=== PATIENT | female | born 1990 | race Asian ===

== ENCOUNTER 2021-10-08 08:54 | Outpatient (CLI) | payer OTHER ==
--- NOTE | 2021-10-08 10:37 | XRAY Report ---
PROCEDURE: Ribs w/PA Chest RT INDICATIONS: RIB PAIN TECHNIQUE: 3 views of the right ribs were acquired, along with a single view chest. COMPARISON: None FINDINGS: Surgical changes and devices: None. Bones and chest wall: Mildly displaced fracture of the right lateral 10th rib. No suspicious bony les ions. Overlying soft tissues appear unremarkable. Lungs and pleura: No pleural effusions or pneumothorax. Lungs appear clear. Mediastinum: Mediastinal contours appear normal. Heart size is normal. IMPRESSION: 1. Right 10th rib fracture. Reviewed by: Ramone Bennett MD on 10/08/2021 10:36 AM PDT Approved by: Ramone Bennett MD on 10/08/2021 10:36 AM PDT Station ID: [id number]
== END 2021-10-08 08:55 | disposition home or self-care (01) ==
LOC: DI.N 08:54 → EDBD 08:54 → DI.N 08:55
PROVIDERS: ATTEND Physician Assistant
DX: S22.31XA Fracture of one rib, right side, initial encounter for closed fracture (principal)

== ENCOUNTER 2023-11-20 08:33 | Emergency (ER) | payer OTHER ==
[2023-11-20 09:28] LABS: BASOPHILS % (AUTO) 0.4 %; EOSINOPHILS # (AUTO) 0.1 10^3/uL (0.0-0.7); EOSINOPHILS % (AUTO) 0.7 %; HCT - HEMATOCRIT 37.4 % (37.0-47.0); HGB - HEMOGLOBIN 12.2 g/dL (12.0-16.0); LYMPHOCYTES % (AUTO) 11.6 %; MEAN CORPUSCULAR HEMOGLOBIN 31.3 pg (27.0-31.0); MEAN CORPUSCULAR HGB CONC 32.6 g/dL (32.0-36.0); MEAN CORPUSCULAR VOLUME 95.9 fL (81.0-99.0); MEAN PLATELET VOLUME 8.3 fL (7.9-10.8); MONOCYTES # (AUTO) 0.5 10^3/uL (0.0-1.0); NEUTROPHILS # (AUTO) 7.2 10^3/uL (1.5-6.6); PLT - PLATELET COUNT 181 10^3/uL (130-450); RED CELL DISTRIBUTION WIDTH 12.9 % (12.0-15.0)
[2023-11-20 09:45] LABS: ALBUMIN 3.7 g/dL (3.2-5.5); ALBUMIN/GLOBULIN RATIO 1.4 (1.0-2.2); ALKALINE PHOSPHATASE 53 IU/L (42-121); ALT ALANINE AMINOTRANSFERASE 13 IU/L (10-60); AST ASPARTATE AMINOTRANSFERASE 16 IU/L (10-42); BILIRUBIN,TOTAL 0.4 mg/dL (0.2-1.0); BUN - BLOOD UREA NITROGEN 10 mg/dL (6-20); CALCIUM 9.4 mg/dL (8.5-10.3); CARBON DIOXIDE - CO2 27 mmol/L (21-32); CHLORIDE 101 mmol/L (101-111); CREATININE 0.5 mg/dL (0.6-1.3); GFR - MDRD 144 (>89); GLUCOSE 87 mg/dL (74-104); POTASSIUM 4.3 mmol/L (3.5-4.5); SODIUM 134 mmol/L (135-145); TOTAL PROTEIN 6.4 g/dL (6.4-8.9)
[2023-11-20 09:51] LABS: LIPASE < 10 U/L (11-82)
--- NOTE | 2023-11-20 10:37 | ED Physician Documentation ---
PD HPI ABD PAIN - Stated complaint Stated Complaint: ABD PX - Chief complaint Chief Complaint: Abd Pain - History obtained from History obtained from: Patient - Additional information Additional information: The patient comes to the emergency department chief complaint of right lower quadrant abdominal pain. She is about 25 weeks and states the pain started around 1:00 this morning. She denies any fevers, chills, nausea, vomiting, dysuria, vaginal bleeding, or vaginal discharge. No history of surgeries. She denies any respiratory symptoms. She states it comes in waves. She is still feeling the baby move. No other complaints at this time. PD PAST MEDICAL HISTORY - Past Medical History Past Medical History: No - Past Surgical History Past Surgical History: No - Present Medications Home Medications: Ambulatory Orders Medication Instructions Recorded Confirmed Pnv No.95/Ferrous Fum/Folic AC 1 each PO DAILY 11/20/23 11/20/23 [ [place]] - Allergies Allergies/Adverse Reactions: Allergies Allergy/AdvReac Type Severity Reaction Status Date / Time No Known Drug Allergies Allergy Verified 11/20/23 08:57 - Social History Does the pt smoke?: No Smoking Status: Never smoker Does the pt drink ETOH?: No Does the pt have substance abuse?: No PD ED PE NORMAL - Vitals Vital signs reviewed: Yes - General General: Alert and oriented X 3, No acute distress, Well developed/nourished - HEENT HEENT: Atraumatic, EOMI, Moist mucous membranes - Neck Neck: Supple, no meningeal sign - Cardiac Cardiac: RRR, No murmur - Respiratory Respiratory: No respiratory distress, Clear bilaterally - Abdomen Abdomen: Soft, Non distended, Other (Moderate right lower quadrant tenderness laterally, no rebound or guarding. Extends to right pelvis.) - Back Back: No CVA TTP - Derm Derm: Normal color, Warm and dry, No rash - Extremities Extremities: No deformity, No edema - Neuro Neuro: Alert and oriented X 3 - Psych Psych: Normal mood, Normal affect Results - Vitals Vitals: Vital Signs - 24 hr 11/20/23 11/20/23 11/20/23 08:53 10:57 12:00 Temperature 36.6 C Heart Rate 80 78 74 Respiratory 18 18 16 Rate Blood Pressure 93/50 L 98/62 95/58 L O2 Saturation 99 100 98 11/20/23 13:37 Temperature 36.7 C Heart Rate 80 Respiratory 16 Rate Blood Pressure 107/78 O2 Saturation 99 Oxygen O2 Source Room air - Labs Labs: Laboratory Tests 11/20/23 11/20/23 11/20/23 09:22 09:22 11:50 WBC 9.0 RBC 3.90 L Hgb 12.2 Hct 37.4 MCV 95.9 MCH 31.3 H MCHC 32.6 RDW 12.9 Plt Count 181 MPV 8.3 Neut # (Auto) 7.2 H Lymph # (Auto) 1.0 L [place] # (Auto) 0.5 Eos # (Auto) 0.1 Baso # (Auto) 0.0 Absolute Nucleated RBC 0.00 Nucleated RBC % 0.0 Sodium 134 L Potassium 4.3 Chloride 101 Carbon Dioxide 27 Anion Gap 6.0 BUN 10 Creatinine 0.5 L Estimated GFR (MDRD) 144 Glucose 87 Calcium 9.4 Total Bilirubin 0.4 AST 16 ALT 13 Alkaline Phosphatase 53 Total Protein 6.4 Albumin 3.7 Globulin 2.7 Albumin/Globulin Ratio 1.4 Lipase < 10 L Urine Color YELLOW Urine Clarity CLEAR Urine pH 7.0 Ur Specific [place] 1.010 Urine Protein NEGATIVE Urine Glucose (UA) NEGATIVE Urine Ketones NEGATIVE Urine Occult Blood NEGATIVE Urine Nitrite NEGATIVE Urine Bilirubin NEGATIVE Urine Urobilinogen 0.2 (NORMAL) Ur Leukocyte Esterase SMALL H Urine RBC None Seen Urine WBC 6-10 H Ur Squamous Epith Cells MOD Squamous H Urine Bacteria Rare Ur Microscopic Review INDICATED Urine Culture Comments NOT INDICATED - Rads (name of study) Ultrasound abdomen Relevant Findings:: Final report received, See rad report (Viable intrauterine at appropriate size for dates. Right adnexal/lower quadrant nonvascular heterogenous focus measuring up to 2.7 cm, external to placenta but indeterminate in origin, may represent fibroid versus adnexal or bowel origin. MRI without contrast could be considered) PD Medical Decision Making - ED course Complexity details: reviewed results, re-evaluated patient, considered differential, d/w patient ED course: The patient was worked up with labs, urinalysis, and ultrasound, and given IV fluids and a small dose of Dilaudid for her pain. The patient was feeling much better on reevaluation. The patient's ultrasound showed no appendicitis and no torsion. A probable soft tissue mass was noted but was unable to be determined whether was in the uterine wall or just outside. Was also possibly involving the adnexa but unclear whether this was the case or not. Her baby's heartbeat was normal and no other concerning findings were evident. The remainder of her workup has been unremarkable. She has an appointment coming up with Dr. Carolyn Mike, her family practitioner who is also managing her , on November 27. I advised her to talk to Dr. Mike about whether she would like to proceed with MRI or whether she feels the patient should be referred to OB. At this point, there is no emergent condition. The patient's is viable and she is not having any vaginal bleeding or fluid leakage. We have discussed symptoms which should prompt the patient to return to the emergency department. Otherwise, she should keep her appointment. Departure - Departure Disposition: Home, Self Care Clinical Impression: Second trimester Abdominal pain Qualifiers: Abdominal location: right lower quadrant Qualified Code(s): R10.31 - Right lower quadrant pain Abdominal mass Qualifiers: Abdominal location: right lower quadrant Qualified Code(s): R19.03 - Right lower quadrant abdominal swelling, mass and lump Condition: Stable Instructions: ED Abdominal Pain Female Non-Specific Abdominal Pain Comments: Your labs and urinalysis look good. Your ultrasound shows what appears to be a soft tissue mass either in the wall of your uterus or just outside. It is not clear exactly what this is or where it is coming from, though could represent a benign growth in your uterine wall called a fibroid. While this is a common finding in women in their 40s or later, it is a little less common in young women. However, if this is what we are seeing, the growth of the could be stretching the uterine wall and causing some pain in the area of the fibroid, which would explain your symptoms. At this point in time, it is advisable that you follow-up with your doctor on November 27 as planned. Our radiologist has recommended an MRI and follow-up and Dr. Mike can decide if she thinks this is what should be done at this point. If your pain becomes very severe or you develop bleeding from your vagina or any other serious symptoms, please return to the emergency department. Otherwise, you may use Tylenol as needed to help with the pain. Forms: PCP List Discharge Date/Time: 11/20/23 13:38
[2023-11-20] MEDS: HYDROmorphone 0.5 MG/0.5 ML SYRINGE IVP STA (10:42)
[2023-11-20] MEDS: SODIUM CHLORIDE 0.9% 1,000 ML IV STA (10:42)
[2023-11-20 11:54] LABS: BILIRUBIN,URINE NEGATIVE (NEGATIVE); GLUCOSE, URINE (UA) NEGATIVE (NEGATIVE); KETONES,URINE (UA) NEGATIVE (NEGATIVE); LEUKOCYTE ESTERASE, URINE SMALL (NEGATIVE); NITRITE,URINE NEGATIVE (NEGATIVE); OCCULT BLOOD,URINE NEGATIVE (NEGATIVE); PROTEIN,URINE NEGATIVE (NEGATIVE); UROBILINOGEN,URINE 0.2 (NORMAL) E.U./dL (NORMAL)
[2023-11-20 11:55] LABS: CLARITY,URINE CLEAR (CLEAR)
[2023-11-20 12:05] LABS: BACTERIA,URINE Rare /HPF (None Seen); RBC,URINE None Seen /HPF (0-5); SQUAMOUS EPITHELIAL CELL,UR MOD Squamous (<= Few)
--- NOTE | 2023-11-20 12:37 | Ultrasound Report ---
PROCEDURE: Abdomen Limited INDICATIONS: pelvic pain, R; is 25 wks preg; can we see append? TECHNIQUE: Real-time focused scanning was performed of the abdomen, with image documentation. COMPARISONS: None. FINDINGS: Appendix is not visualized the right lower quadrant. Limited views of single intrauterine gestation. heart rate is 141 bpm. Right ovary measures 1.3 x 2.5 x 1.4 cm with a calculated ovarian volume of 2.4 mL. Color-flow imagin g demonstrates intact venous and arterial waveforms in the region of the right ovary. In the area of clinical concern in the right adnexal region there is a nonvascular heterogeneous focu s measuring 2.6 x 2.7 x 2.6 cm. IMPRESSION: Right adnexal/lower quadrant nonvascular heterogeneous focus measuring up to 2.7 cm corresponding to area of clinical pain. Finding appears external to the placenta, however is indeterminate in origin a nd may represent intrauterine mass such as a fibroid versus adnexal or bowel origin. Further evaluat ion with MRI without contrast could be considered if clinically appropriate. Limited views of single intrauterine gestation. Normal heart rate. Reviewed by: Arabella Kirkland MD, PhD on 11/20/2023 11:36 AM [facility] Approved by: Arabella Kirkland MD, PhD on 11/20/2023 11:36 AM [facility] Station ID: [id number]
[2023-11-20 13:43] VITALS: BP 107/78; O2SAT 99
== END 2023-11-20 13:38 | disposition home or self-care (01) ==
LOC: ED 08:33
DX: O26.892 Other specified pregnancy related conditions, second trimester (principal); Z3A.25 25 weeks gestation of pregnancy; R19.03 Right lower quadrant abdominal swelling, mass and lump
CPT/HCPCS: 36415; 76705; 80053; 81001; 83690; 85025; 96374; 99284; J1170; 81003; 87086